=== PATIENT | male | born 1985 | race Caucasian/White ===

== ENCOUNTER 2017-05-11 11:03 | Inpatient (IN) | payer BC, OTHER ==
[~2017-05-11] VITALS: Ht 190.5 cm; Wt 89.8 kg
[2017-05-11 16:55] VITALS: BP 120/68
--- NOTE | 2017-05-11 16:55 | NUR ---
Pre-admission Notes: Client is seen in intake at this time. He is alert and oriented x 4. Verbally responsive. Speech is clear. Presents with mild anxiety but with good eye contact. Educated patient on the admission process. Able to verbalize good understanding. Patient states that he is here to safely detox from opiates. Reports using Oxycontin 450 mg PO x 3 years. Denies any seizure history. Reports having seasonal allergies caused by pollen extracts. NKDA. Wishes to be FULL CODE. Follows a regular diet at home. VS: BP 120/68, Pulse 86, Temp 98.1, RR 19, PL 0/10. O2 sat 94% RA. COWS 7, patient complains of anxiety, hot flashes, feeling jittery with restless legs, runny nose, and fine tremors. Patient reports past medical hx appendectomy 5 years ago. Denies any seizure history. Will continue with the admission process when patient is in the unit.
--- NOTE | 2017-05-11 17:20 | NUR ---
Admission Notes: Admitted a 31 year old male under the care of Dr. Sheldon Mcallister for admitting Dx of opiate withdrawal. Patient is alert and oriented x 4. Verbally responsive. Respirations even and unlabored. No SOB noted. Skin warm and moist to touch. Body search done. No contraband was found. Skin check done. No skin breakdown noted. Skin is clear and intact. Noted with multiple tattoos all over body area. Abdomen soft and non-distended with (+) BS in all 4 quadrants. No complains of N/V/D or abdominal cramping noted. LBM 05/08/2017. Bladder non-distended. No complains of dysuria noted. Denies seizure history. Reports NKDA, however he stated that he would have seasonal allergies due to pollen. He reports past medical hx of appendectomy, depression and anxiety. He denies having a PCP at this time. He reports having a family hx of substance abuse in the family, dad (ETOH abuse). He is currently unemployed and lives alone with his dog. He is currently unemployed and he states that the cause of his ongoing and frequent use have been due to difficulty coping with negative emotions. This is the patient's first time in detox. Substance Use: 1. Oxycodone - since 28 years old. Snorts 450 mg of Oxycodone daily x 2 years. Last use was on 05/11/2017 at 1000, 150mg. Dr. Mcallister in to see the patient while in intake and admission orders were entered. Will continue to monitor closely.
[2017-05-11 18:04] LABS: *AMPHETAMINE, URINE NEGATIVE (NEGATIVE); *BARBITURATE, URINE NEGATIVE (NEGATIVE); *CANNABINOID, URINE NEGATIVE (NEGATIVE); *COCCAINE, URINE NEGATIVE (NEGATIVE); *OPIATE, URINE POSITIVE (NEGATIVE); *PHENCYCLIDINE SCREEN,URINE NEGATIVE (NEGATIVE)
[2017-05-11] MEDS ORDERED: PARO25TA16 PO (18:06)
[2017-05-11 18:40] LABS: BASOPHILS % (AUTO) 0.6 % (0.0-2.0); EOSINOPHILS # (AUTO) 0.5 K/uL (0.0-0.7); EOSINOPHILS % (AUTO) 7.5 % (0.0-7.0); HEMATOCRIT 38.6 % (40-50); LYMPHOCYTES # (AUTO) 2.1 K/UL (0.8-4.8); LYMPHOCYTES % (AUTO) 30.1 % (20.5-51.5); MEAN CORPUSCULAR HEMOGLOBIN 30.6 UUG (27.0-31.0); MEAN CORPUSCULAR HGB CONC 34 g/dL (32.0-37.0); MEAN CORPUSCULAR VOLUME 90.6 FL (82.0-92.0); MONOCYTES # (AUTO) 0.4 K/UL (0.1-1.30); MONOCYTES % (AUTO) 6.3 % (0.0-11.0); NEUTROPHILS % (AUTO) 55.5 % (38.5-71.5); PLATELET COUNT (AUTO) 235 K/UL (150-450); RED BLOOD CELL COUNT(AUTO) 4.26 MIL/UL (4.7-6.1)
[2017-05-11 18:41] LABS: ETHANOL < 3 MG/DL (0-0)
[2017-05-11 18:45] LABS: ALANINE AMINOTRANSFERASE 29 U/L (16-63); ALKALINE PHOSPHATASE 86 U/L (50-136); ASPARTATE AMINOTRANSFERASE 14 U/L (15-37); BILIRUBIN,TOTAL 0.1 mg/dL (0.2-1.0); CARBON DIOXIDE 34 mmol/L (21-32); CHLORIDE 103 mmol/L (98-107); CREATININE 1.2 mg/dL (0.6-1.3); GLUCOSE 120 mg/dL (74-106); MAGNESIUM 1.9 mg/dL (1.8-2.4); POTASSIUM 4.9 mmol/L (3.5-5.1); TOTAL PROTEIN, SERUM 6.7 g/dL (6.4-8.2); UREA NITROGEN, BLOOD 18 mg/dL (7-18)
--- NOTE | 2017-05-11 18:56 | NUR ---
End of Shift Notes: Patient is a 31 year old male admitted for opiate dependence. Patient will be started on a 5-day Subutex taper tomorrow AM. VS monitored. No significant abnormalities noted. Withdrawal symptoms were closely monitored. COWS 7 upon admission, patient presented with hot, chills, sweats and runny nose. Compliant with care and treatment. Educated patient on the units policies and safety protocols. Will continue to monitor.
[2017-05-11 20:00] VITALS: BP 109/67
--- NOTE | 2017-05-11 20:00 | NUR ---
1999 Patient received awake, alert and standing outside of his room # [id number], talking with other patients. Patient assisted into his room for V/S and nurse assess. Gait is steady. Patient responds to nurse's greeting and introduction with a smile and " Oh, Hi you're my nurse?" Patient's color is pink and his skin is clean, warm, dry and intact. Patient is oriented to person, place, day, date, time and his personal situation. Patient states that he feels "okay right now", and he denies any pain or any other discomfort presently. Patient states that he has eaten his his Regular diet meal tray and he is taking various fluids ad darwin since he was admitted this afternoon, with no gastric issue so far. Vital signs are: 98-80-18 109/67, O2 Sat 98%, COWS 4 . Patient was admitted today, 05/11/17, for Oxycodone withdrawal and he will start on a 5-Day Subutex medication taper on 05/12/17 for withdrawal symptoms. Patient is friendly, cooperative, gives good eye contact and is verbally appropriate when interacting with patient, though he states that this is his first treatment admission and he is feeling a little anxious. Calm reassurances and positive encouragement given to patient, and then patient smiled brightly and states, " Oh, okay, well I think I'm going to go downstairs for a smoke break now". Patient voices no requests for anything at this time. Bed is locked and in lowest position, bed rails are up X 1 and call light on patient's bed.
--- NOTE | 2017-05-11 21:16 | NUR ---
PRN MEDICATIONS: Prn Vistaril 25 mg p.o. given per c/o anxiety, Prn Benadryl 50 mg p.o. given per request for sleep medication and Prn Robaxin 750 mg given per c/o generalized body muscle aches, -02/13.
--- NOTE | 2017-05-11 22:16 | NUR ---
REASSESSMENT PRN MEDICATIONS: Patient is downstairs on hospital patio for smoke break. Unable to reassess patient at this time.
[2017-05-12] VITALS: BP 96/56
--- NOTE | 2017-05-12 | NUR ---
V/S are: 98-66-14 96/56, O2 Sat 96%. Patient too sleepy to do COWS assessment at this time.
--- NOTE | 2017-05-12 03:11 | NUR ---
PRN MEDICATIONS: Prn Vistaril 25 mg p.o. given per c/o anxiety and Prn Catapres 0.1 mg p.o. per c/o increasing anxiety and agitation. Patient states, " I feel a little restless".
[2017-05-12 04:00] VITALS: BP 120/70
--- NOTE | 2017-05-12 04:00 | NUR ---
V/S are: 98.2-70-12 120/70, O2 Sat 98%, COWS 2.
--- NOTE | 2017-05-12 04:11 | NUR ---
REASSESSMENT PRN MEDICATIONS: Patient is resting comfortably with eyes closed and respirations quiet, even, unlabored ar12.
--- NOTE | 2017-05-12 06:30 | NUR ---
0630 Patient slept a total of 6 hours and he had 1 void and no stools. Total intake was 500 ml p.o. Prn medications given noted separately per floor protocol. V/SS afebrile, last COWS 2 at 0400. Patient is presently resting comfortably in stable condition with eyes closed and respirations quiet, unlabored at 12.
--- NOTE | 2017-05-12 08:00 | NUR ---
31 year old male, admitting Dx of opiate withdrawal. NKDA, but has seasonal allergies due to pollen. Past medical hx of appendectomy, depression and anxiety. Report received from night RN. Received PRN Benadryl, Vistaril and Robaxin at approximately 9 pm. Slept 6 hours. Approximately 3 am, PRN Vistaril and clonidine given. Last COW 2. 0800 patient rounds, patient sleeping, alert to verbal. Denies pain. Call buchanan in reach, bed in low position an locked, side rails up x 2. Will continue to monitor.
[2017-05-12 08:30] VITALS: BP 115/71
[2017-05-12 12:30] VITALS: BP 100/58
[2017-05-12 16:30] VITALS: BP 96/47
--- NOTE | 2017-05-12 19:35 | NUR ---
END OF SHIFT NOTE 31 year old male, admitting Dx of opiate withdrawal. NKDA, but has seasonal allergies due to pollen. Past medical hx of appendectomy, depression and anxiety. 1700 Subutex held due to BP 99/56. Dr. Mcallister notified. COWS 4 at 0800, 1200 and 1600. Intake 750 ml, RN encouraged increased po fluids. Good appetite, ate 75 percent at breakfast, and 100 percent at lunch and dinner. Void x 1, stool x 1. Report given to night RN. Call buchanan in reach, bed in low position an locked, side rails up x 2.
[2017-05-12 20:00] VITALS: BP 116/70
--- NOTE | 2017-05-12 20:00 | NUR ---
1999 Patient received lying in position of comfort, resting quietly. Aroused easily for vital signs and nurse assess. Vital signs are: 98.4-63-16 116/70, O2 Sat 97%, COWS 4 . Patient is oriented to person, place, day, date and his personal situation. Easily reoriented to time. Patient states that he has been eating and taking encouraged fluids ad darwin with no gastric issues. Patient states further that he has attended a [employer] group today, but he has been resting in his room a lot also. Patient's color is pink and his skin is clean, warm, dry and intact. Patient denies feeling any pain or other discomfort presently and he voices no requests for anything at this time. Patient was admitted on 05/11/17 for Oxycodone withdrawal and he has been started today on a 5-Day Subutex medication taper, which he is apparently tolerating well thus far. Patient is friendly, cooperative and verbally appropriate when interacting with nurse and his overall mood/affect is bright, though slightly anxious. Bed is locked and in lowest position, bed rails are up X 2 and call light within patient's easy reach.
--- NOTE | 2017-05-12 21:48 | NUR ---
PRN MEDICATIONS: Prn Robaxin 750 mg p.o. given per request for c/o generalized body muscle aches/pains, 7/10 pain scale, and Prn Vistaril 25 mg p.o. given per c/o anxiety.
--- NOTE | 2017-05-12 22:48 | NUR ---
REASSESSMENT PRN MEDICATIONS: Patient is downstairs on hospital patio for cigarette smoke. Unable to reassess patient at this time.
--- NOTE | 2017-05-12 23:41 | NUR ---
PRN MEDICATION: Prn Benadryl 50 mg p.o. given per request for sleep medication.
[2017-05-13] VITALS: BP 113/69
--- NOTE | 2017-05-13 | NUR ---
V/S are: 98.1-65-14 113/69, O2 Sat 97%. Patient too sleepy to do COWS assess.
--- NOTE | 2017-05-13 00:41 | NUR ---
REASSESSMENT PRN MEDICATION: Patient is sleeping soundly with eyes closed and respirations quiet, even, unlabored at 12.
--- NOTE | 2017-05-13 00:55 | NUR ---
PRN Clonidine Pt c/o anxiety and requested for PRN Clonidine. Medication given and tolerated well. Will reassess within 1 HR. Will continue to monitor.
--- NOTE | 2017-05-13 01:50 | NUR ---
PRN Clonidine Reassessment Medication effective. Pt is resting well in bed. No s/s of ASE/distress noted at this time. Respirations even and unlabored. Will continue to monitor.
--- NOTE | 2017-05-13 04:00 | NUR ---
Patient refused to be awakened for V/S, COWS assess to be done at this time.
[2017-05-13 06:07] LABS: HEPATITIS B SURFACE AG Negative (Negative)
--- NOTE | 2017-05-13 06:30 | NUR ---
0630 Patient slept a total of 7 hours and he had 1 void (500 ml ) and no stools. Total intake was 1,547 ml p.o. Prn medications given noted separately per floor protocol. V/SS afebrile, last COWS 4 at 0000. Patient is presently resting comfortably in stable condition with eyes closed and respirations quiet, even, unlabored at 12.
--- NOTE | 2017-05-13 07:30 | NUR ---
Start of shift note; Received report from night nurse. Patient is a 31 year old male admitted on 05/11/17 for Opiate dependence.. Patient was placed on a 5 day Subutex taper, no adverse effects noted. Patient reported history of appendectomy, depression, anxiety. Patient is on fall precaution. Bed in lwoest position, call light within reach. Will continue to monitor patient.
[2017-05-13 08:00] VITALS: BP 104/64
[2017-05-13 12:00] VITALS: BP 107/65
--- NOTE | 2017-05-13 12:06 | NUR ---
THerapist encouraged client to attend group today. Client agreed to attend group.
[2017-05-13 16:00] VITALS: BP 125/61
--- NOTE | 2017-05-13 19:26 | NUR ---
End of shift note; Patient is AOX4. Patient is a 31 year old male admitted on 05/11/17 for Opiate dependence.. Patient was placed on a 5 day Subutex taper, no adverse effects noted. Patient reported history of appendectomy, depression, anxiety. Patient is on fall precaution. Bed in lowest position, call light within reach. Patient remained compliant with treatment plan and medication regime. Medications were effective in reducing withdrawal symptoms. Met all needs.
--- NOTE | 2017-05-13 19:30 | NUR ---
START OF SHIFT Pt is a 31 y/o male admitted on 05/11/17 for opiate dependence. Pt was dependent oxycodone 450 mg for 2 years. Pt is full code, regular diet, allergic to pollen extract and on fall precaution. No reported seizure hx. This is pts first time in detox. Pt reports PMH of depression, anxiety, and appendectomy. Pt started on a 5 day Subutex taper on 05/12/17. Upon assessment pt presents with chills, increased HR, mild body aches, stomach cramps, tremors and anxiety. Respirations 18, even and unlabored. Denies N/V/D. Denies chest pain or SOB. Medications due. Safety measures in place. Call light within reach. Will continue to monitor.
[2017-05-13 20:00] VITALS: BP 133/80
--- NOTE | 2017-05-13 21:52 | NUR ---
PRN VISTARIL AND BENADRYL ADMINISTRATION Pt reports and appears anxious. Pt also requests sleep aid. Respirations 16, even and unlabored. Safety measures in place. Call light within reach. Will continue to monitor.
--- NOTE | 2017-05-13 22:52 | NUR ---
PRN VISTARIL AND BENADRYL REASSESSMENT Pt reports improvement in anxiety, but is still awake. Respirations 16, even and unlabored. Safety measures in place. Call light within reach. Will continue to monitor.
[2017-05-14] VITALS: BP 117/68
--- NOTE | 2017-05-14 04:00 | NUR ---
VITALS REFUSED AND COWS DEFERRED Pt is laying in bed with eyes closed, COWS deferred, to be assessed when pt is awake per orders. Pt refused vitals. Respirations 16, even and unlabored. Safety measures in place. Call light within reach. Will continue to monitor.
--- NOTE | 2017-05-14 08:00 | NUR ---
START OF SHIFT NOTE 31 year old male admitted on 05/11/17 for Oxycodone substance detox. ON 5 day Subutex taper. Fall precautions. Allergy to pollen. Full code. Regular diet. Fall precautions. No history of seizure. History of depression. Received report from night RN. Pt received PRN Benadryl and Vistaril. Last COWS 5. Slept 5.5 hours. On 0800 patient rounds Pt sleeping but awakened when room door opened. Pt alert and oriented. Bed in low position and locked, side rails up x 2, call buchanan within reach. Will continue to monitor.
[2017-05-14 08:50] VITALS: BP 101/67
[2017-05-14 12:00] VITALS: BP 122/56
--- NOTE | 2017-05-14 15:26 | NUR ---
PRN MEDICATION ADMINISTRATION Anxiety 03/16 Given Clonidine prn.
--- NOTE | 2017-05-14 16:36 | NUR ---
PRN MEDICATION REASSESSMENT. Anxiety did not decrease with Clonidine. Given Vistaril PRN
[2017-05-14 17:00] VITALS: BP 136/76
--- NOTE | 2017-05-14 17:36 | NUR ---
PRN MEDICATION REASSESSMENT Anxiety decreased to 4/10 after administration of vistaril.
--- NOTE | 2017-05-14 19:30 | NUR ---
START OF SHIFT Pt is a 37 y/o male admitted on 05/12/17 for ETOH dependence. Pt was dependent on hard liquors 1500 ml daily for 3 years. Pt is full code, regular diet, allergic to amoxicillin and clavulanic acid, and on fall and seizure precautions. Pt has hx of seizure as a child r/t pseudotumor cerebri. Pt reports PMH of HTN and is deaf in R ear. Pt is on a 5 day Ativan taper started on 05/13/17. Last CIWA 6 at 1600. PRN Clonidine administered during day shift. Upon assessment pt presents with slight tremors, anxiety, increased HR, sweats, restlessness, flushed skin. Pt complains of pain in R ear (chronic), low back pain that radiates down right leg. 1:1 sitter with pt at bedside for safety precaution. Respirations 18, even and unlabored. Denies N/V/D. Denies chest pain or SOB. Medications due. Safety measures in place. Call light within reach. Will continue to monitor. Addendum: 05/14/17 at 2230 by NELY CHAVARRIA RN WRONG PATIENT START OF SHIFT CORRECT START OF SHIFT: Pt is a 31 y/o male admitted on 05/11/17 for opiate dependence. Pt was dependent oxycodone 450 mg for 2 years. Pt is full code, regular diet, allergic to pollen extract and on fall precaution. No reported seizure hx. This is pts first time in detox. Pt reports PMH of depression, anxiety, and appendectomy. Pt started on a 5 day Subutex taper on 10/06/17, tolerating well. Upon assessment pt laying in bed watching TV and presents with moderate anxiety, flushed skin, and sweats. Respirations 16, even and unlabored. Denies N/V/D. Denies chest pain or SOB. Medications due. Safety measures in place. Call light within reach. Will continue to monitor.
--- NOTE | 2017-05-14 19:37 | NUR ---
END OF SHIFT NOTE 31 year old male admitted on 05/11/17 for Oxycodone substance detox. ON 5 day Subutex taper. Fall precautions. Allergy to pollen. Full code. Regular diet. Fall precautions. No history of seizure. History of depression. Given clonidine for anxiety at 1526 without reduction in anxiety. 1636 given Vistaril with decrease in anxiety. Last COWS 6. Report given to night RN. Bed in low position and locked, side rails up x 2, call buchanan within reach.
[2017-05-14 20:00] VITALS: BP 114/68
--- NOTE | 2017-05-14 21:43 | NUR ---
PRN CLONIDINE 0.1 MG ADMINISTRATION Pt presents with moderate anxiety, irritability, and mild sweats. Clonidine administered for management of S/S of withdrawal. BP 119/73. Will monitor BP and S/S of withdrawal. Safety measures in place. Call light within reach.
--- NOTE | 2017-05-14 22:43 | NUR ---
PRN CLONIDINE REASSESSMENT Pt reports reduction in anxiety. Pt appears less anxious, irritable, and sweaty. Safety measures in place. Call light within reach. Will continue to monitor.
--- NOTE | 2017-05-14 23:44 | NUR ---
PRN VISTARIL AND TRAZODONE ADMINISTRATION Pt reports persistent mild to moderate anxiety and requests sleep aid. Safety measures in place. Call light within reach. Will continue to monitor.
[2017-05-15] VITALS: BP 102/66
--- NOTE | 2017-05-15 00:44 | NUR ---
PRN VISTARIL AND TRAZODONE REASSESSMENT Pt is laying in bed with eyes closed. Respirations 16, even and unlabored. Safety measures in place. Call light within reach. Will continue to monitor.
--- NOTE | 2017-05-15 04:00 | NUR ---
VITALS REFUSED AND COW DEFERRED Pt is laying in bed with eyes closed, vitals refused, COW deferred, to be assessed when fully awake per orders. Respirations 16, even and unlabored. Safety measures in place. Call light within reach. Will continue to monitor.
--- NOTE | 2017-05-15 07:08 | NUR ---
END OF SHIFT Pt is a 31 y/o male admitted on 05/11/17 for opiate dependence. Pt was dependent oxycodone 450 mg for 2 years. Pt is full code, regular diet, allergic to pollen extract and on fall precaution. No reported seizure hx. This is pts first time in detox. Pt reports PMH of depression, anxiety, and appendectomy. Pt started on a 5 day Subutex taper on 05/12/17, tolerating well. Pt presented with moderate anxiety, flushed skin, and sweats. Scheduled medications and PRN Clonidine, Vistaril, and Trazodone administered, effective in S/S of withdrawal AEB COW went from 3 to 2 during shift and pt verbalized improvement in symptoms. Slept 8 hours. Intake 1006 ml, void x 3, stool x 0. Safety measures in place. Call light within reach. Pts needs have been met. Endorsed to day shift nurse.
--- NOTE | 2017-05-15 07:49 | NUR ---
Start of shift note; Received report from night nurse. Patient is a 31 year old male admitted on 05/11/17 for Opiate dependence.. Patient was placed on a 5 day Subutex taper, no adverse effects noted. Patient reported history of appendectomy, depression, anxiety. Patient is on fall precaution. Bed in lowest position, call light within reach. Patient received PRN Clonidine, Vistaril and Trazodone last night all noted to be effective per night nurse. Patient's last COWS is 2, slept for 8 hours. Will continue to monitor patient.
[2017-05-15 08:00] VITALS: BP 98/65
[2017-05-15 12:00] VITALS: BP 110/62
--- NOTE | 2017-05-15 15:48 | NUR ---
PRN medication; Patient appears agitated and anxious. Non-pharmacological relaxation techniques ineffective. PRN Clonidine 0.1mg PO given for agitation. Will continue to monitor patient.
--- NOTE | 2017-05-15 15:48 | NUR ---
Re-assessment; Patient appears calm and comfortable. PRN Clonidine noted to be effective.
[2017-05-15 16:00] VITALS: BP 110/64
--- NOTE | 2017-05-15 18:19 | NUR ---
End of shift note; Patient is AOX4. Patient is a 31 year old male admitted on 05/11/17 for Opiate dependence.. Patient was placed on a 5 day Subutex taper, no adverse effects noted. Patient reported history of appendectomy, depression, anxiety. Patient is on fall precaution. Bed in lowest position, call light within reach. Patient remained compliant with treatment plan and medication regime. Medications were effective in reducing withdrawal symptoms. Patient's last COWS score is 4 at 1600. Met all needs.
--- NOTE | 2017-05-15 18:26 | NUR ---
PRN medications; Patient appears very anxious and agitated, pacing back and forth in the room. Patient is also complaining of pain/headache rated 6/10 on pain scale. PRN Vistaril 25mg PO given for anxiety and PRN Motrin 600mg PO given for pain. Will continue to monitor patient for effectiveness of medication.
--- NOTE | 2017-05-15 19:16 | NUR ---
Re-assessment; Patient appears calm and comfortable, currently denies pain/headache. PRN Motrin and PRN Vistaril were effective.
--- NOTE | 2017-05-15 19:30 | NUR ---
START OF SHIFT Pt is a 31 y/o male admitted on 05/11/17 for opiate dependence. Pt was dependent oxycodone 450 mg for 2 years. Pt is full code, regular diet, allergic to pollen extract and on fall precaution. No reported seizure hx. Pt reports PMH of depression, anxiety, and appendectomy. Pt started on a 5 day Subutex taper on 05/12/17, tolerating well. Upon assessment pt presents with moderate anxiety, sweats and restlessness. Respirations 16, even and unlabored. Denies N/V/D. Denies chest pain or SOB. Medications due. Safety measures in place. Call light within reach. Will continue to monitor.
[2017-05-15 20:00] VITALS: BP_SYST 112; BP_SYST 128; BP_DIAS 59; BP_DIAS 74
--- NOTE | 2017-05-15 21:58 | NUR ---
PRN CLONIDINE ADMINISTRATION Pt reports worsening anxiety, restlessness, tremors, and sweats. BP 119/64, HR 86. Respirations 18, even and unlabored. Safety measures in place. Call light within reach. Will continue to monitor.
--- NOTE | 2017-05-15 22:58 | NUR ---
PRN CLONIDINE REASSESSMENT Pt is awake, laying in bed. Patient appears anxious and mildly fidgety. Pt reports "only very mild improvement" in symptoms. Advised pt to take slow, deep breaths. Will continue to monitor. Safety measures in place. Call light within reach.
[2017-05-16] VITALS: BP 113/67
--- NOTE | 2017-05-16 00:10 | NUR ---
PRN BENADRYL AND ROBAXIN ADMINISTRATION Pt requests sleep aid. Robaxin administered for muscle spasms. Pt is laying in bed watching tv. Safety measures in place. Call light within reach. Will continue to monitor.
--- NOTE | 2017-05-16 01:10 | NUR ---
ELENI MELTON AND KAVITHA REASSESSMENT Pt reports improvement in muscle spasms, but is still awake, laying in with watching TV. Will continue to monitor. Safety measures in place. Call light within reach.
--- NOTE | 2017-05-16 01:18 | NUR ---
ELENI ROBERTSON Pt reports persistent anxiety. Pt appears mildly fidgety. Safety measures in place. Call light within reach. Will continue to monitor. Addendum: 05/16/17 at 0236 by NELY CHAVARRIA RN ADMINISTRATION
--- NOTE | 2017-05-16 02:18 | NUR ---
PRN VISTARIL ADMINISTRATION Pt reports improvement in anxiety, does not appear fidgety. Pt laying in bed watching tv. Safety measures in place. Call light within reach. Will continue to monitor. Addendum: 05/16/17 at 0236 by NELY CHAVARRIA RN REASSESSMENT, NOT ADMINISTRATION OF VISTARIL
--- NOTE | 2017-05-16 04:00 | NUR ---
VITALS REFUSED AND COW DEFERRED Pt refused vitals. Pt is laying in bed with eyes closed, COW to be assessed when pt is fully awake per orders. Respirations 18, even and unlabored. Safety measures in place. Call light within reach. Will continue to monitor.
--- NOTE | 2017-05-16 07:17 | NUR ---
END OF SHIFT Pt is a 31 y/o male admitted on 05/11/17 for opiate dependence. Pt was dependent oxycodone 450 mg for 2 years. Pt is full code, regular diet, allergic to pollen extract and on fall precaution. No reported seizure hx. Pt reports PMH of depression, anxiety, and appendectomy. Pt started on a 5 day Subutex taper on 05/12/17, tolerating well. Pt presented with moderate anxiety, sweats, and restlessness. Scheduled medications and PRN Benadryl, Vistaril, Robaxin, and Clonidine administered, effective in S/S of withdrawal as verbalized by pt and COW 4 lowered to 2. Slept 2.5 hours. Intake 855 ml, void x 2, stool x 0. Safety measures in place Call light within reach. Pts needs have been met. Endorsed to day shift nurse.
--- NOTE | 2017-05-16 07:30 | NUR ---
Start of shift note; Received report from night nurse. Patient is a 31 year old male admitted on 05/11/17 for Opiate dependence.. Patient was placed on a 5 day Subutex taper, no adverse effects noted. Patient reported history of appendectomy, depression, anxiety. Patient is on fall precaution. Bed in lowest position, call light within reach. Patient's last COWS is 2, slept for 3 hours. Will continue to monitor patient.
[2017-05-16 08:00] VITALS: BP 108/64
[2017-05-16 12:00] VITALS: BP 95/64
--- NOTE | 2017-05-16 15:35 | NUR ---
PRN medication; Patient is complaining of sore throat and headache/pain rated 6/10 on pain scale. PRN Motrin given for pain and Cepacol given for sore throat as per MD order.Will continue to monitor patient.
[2017-05-16 16:00] VITALS: BP 111/63
--- NOTE | 2017-05-16 16:35 | NUR ---
Re-assessment; Re-assessed patient. Patient is still complaining of headache/pain. PRN medication is ineffective.
--- NOTE | 2017-05-16 16:50 | NUR ---
PRN medication; Patient is complaining of headache/pain rated 6/10 on pain scale, PRN Tylenol 650mg PO given for pain and Vistaril 25mg PO given for anxiety. Will continue to monitor patient for effectiveness of medication.
--- NOTE | 2017-05-16 17:50 | NUR ---
Re-assessment; Patient appears calm and comfortable, denies pain/headache at this time. PRN medications were effective.
--- NOTE | 2017-05-16 18:09 | NUR ---
End of shift note; Patient is AOX4. Patient is a 31 year old male admitted on 05/11/17 for Opiate dependence.. Patient was placed on a 5 day Subutex taper, no adverse effects noted. Patient reported history of appendectomy, depression, anxiety. Patient is on fall precaution. Bed in lowest position, call light within reach. Patient remained compliant with treatment plan and medication regime. Medications were effective in reducing withdrawal symptoms. Patient's last COWS score is 3 at 1600. Met all needs.
[2017-05-16 20:00] VITALS: BP 117/70
--- NOTE | 2017-05-16 20:00 | NUR ---
START OF SHIFT Received report from day shift nurse. Pt attended a group meeting and returned to his room after. He is a 31 yo male admitted to [facility] on 05/11 for Opioid dependence. He is A&O x4 and ambulatory. Allergic to pollen extracts, full code status, and on a regular diet. He has a PMH of appendectomy, depression, and anxiety. On admission he reported using oxycodone 450mg per day. Pt started a 5 day subutex taper on 05/12. He reports a high level of anxiety. Provided support and encouraged relaxation. Taper due tonight. Fall and seizure precautions in place. Bed is down with call light in reach.
--- NOTE | 2017-05-16 21:02 | NUR ---
PRN Clonidine and Lozenge Pt reports high anxiety level and appears restless. Encouraged relaxation PRN Clonidine administered. He reports mild sore throat. PRN Lozenge administered.
--- NOTE | 2017-05-16 22:02 | NUR ---
PRN Clonidine reassessment PRN Clonidine effective. Pt reports feeling more relaxed. He no longer appears restless.
[2017-05-16 23:50] VITALS: BP 113/63
--- NOTE | 2017-05-16 23:56 | NUR ---
PRN Vistaril and Benadryl Pt reports anxiety level has increased and he is unable to sleep. PRN Vistaril and Benadryl administered.
[2017-05-17] VITALS: BP 113/63
--- NOTE | 2017-05-17 00:56 | NUR ---
PRN Vistaril and Benadryl reassessment PRN Vistaril and Benadryl effective. Pt is lying in bed resting with eyes closed. Respirations even and unlabored. Safety measures in place.
--- NOTE | 2017-05-17 04:00 | NUR ---
0400 Vitals refused/COWS deferred Pt refused to be woken for 0400 vitals. He is lying in bed resting with eyes closed. Respirations even and unlabored. COWS ordered Q4HWA. Safety measures in place.
--- NOTE | 2017-05-17 06:58 | NUR ---
END OF SHIFT Report provided to day shift nurse. Pt. is lying in bed resting. He is a 31 yo male admitted to [facility] on 05/11 for Opioid dependence. He is A&O x4 and ambulatory. Allergic to pollen extracts, full code status, and on a regular diet. He has a PMH of appendectomy, depression, and anxiety. On admission he reported using oxycodone 450mg per day. 5 day subutex taper was started on 05/12. He is compliant with treatment. PRN Clonidine, Vistaril, Benadryl, and Lozenge administered. Last COWS 4. He drank 1400mL and slept for 6 hours. Fall and seizure precautions in place. Bed is down with call light in reach.
--- NOTE | 2017-05-17 07:24 | NUR ---
Start of shift note; Received report from night nurse. Patient is a 31 year old male admitted on 05/11/17 for Opiate dependence.. Patient was placed on a 5 day Subutex taper, no adverse effects noted. Patient reported history of appendectomy, depression, anxiety. Patient is on fall precaution. Bed in lowest position, call light within reach. Patient's last COWS is 2, slept for 7 hours. Will continue to monitor patient.
[2017-05-17 08:00] VITALS: BP 96/69
[2017-05-17 12:00] VITALS: BP 99/62
[2017-05-17] MEDS ORDERED: DICY20TA28 PO (13:23)
[2017-05-17] MEDS ORDERED: IBUP-1955 PO (13:23)
[2017-05-17] MEDS ORDERED: HYDR-3895 PO (13:23)
[2017-05-17] MEDS ORDERED: METH-406 PO (13:23)
[2017-05-17] MEDS ORDERED: DIPH50CA37 PO (13:23)
[2017-05-17] MEDS ORDERED: TRAZ-144 PO (13:23)
[2017-05-17 16:00] VITALS: BP 115/76
--- NOTE | 2017-05-17 18:05 | NUR ---
End of shift note; Patient is AOX4. Patient is a 31 year old male admitted on 05/11/17 for Opiate dependence.. Patient was placed on a 5 day Subutex taper, no adverse effects noted. Patient reported history of appendectomy, depression, anxiety. Patient is on fall precaution. Bed in lowest position, call light within reach. Patient remained compliant with treatment plan and medication regime. Medications were effective in reducing withdrawal symptoms. Patient's last COWS score is 3 at 1600. Patient is medically cleared for discharge tomorrow. Met all needs.
--- NOTE | 2017-05-17 18:06 | NUR ---
Start of Care Pt is a 31 year old male admitted for Oxycodone dependence, placed on 5 day Subutex taper, completed. Pt reported using Oxycodone 450mg/daily for 2 years. PMH: Appendectomy, depression and anxiety. Pt reports allergies to pollen extract, regular diet, fall precautions and full code. Upon assessment, pt reports feeling anxious, respirations even/unlabored, denies SOB/chest pain, denies n/v/d, bowel sounds active x4, abdomen soft. Pt is scheduled for discharged tomorrow. Safety measures in place, call light within reach, side rails up x2, bed locked and in low position. Will continue to monitor.
--- NOTE | 2017-05-17 18:58 | NUR ---
PRN Administration Pt reports feeling anxious, requests relief. Vistaril 25mg PRN administered. Safety measures in place. Will continue to monitor.
--- NOTE | 2017-05-17 19:58 | NUR ---
PRN Reassessment Pt reports feeling better. Pt states Vistaril was effective. Safety measures in place. Will continue to monitor.
[2017-05-17 20:00] VITALS: BP 128/81
--- NOTE | 2017-05-17 21:43 | NUR ---
PRN Administration Pt reports feeling anxious, states "I am feeling restless". Clonidine 0.1mg PRN administered. Benadryl 50mg PRN administered for sleep and 1 Lozenge administered for reports of sore throat. Safety measures in place. Will continue to monitor.
--- NOTE | 2017-05-17 22:43 | NUR ---
PRN Reassessment Upon reassessment, pt states, "feeling at ease". Clonidine effective. Pt denies sore throat. Pt states he is getting ready to sleep. Needs met, safety measures in place. Will continue to monitor.
[2017-05-18] VITALS: BP 119/65
--- NOTE | 2017-05-18 | NUR ---
Vital Signs/COWS deferred BP 119/65, pulse 85, resp 16, Spo2 99% room air, temp 97.9, no reports of pain COWS deferred due to pt sleeping, to assess while pt is awake as ordered. Safety measures in place. Will continue to monitor.
--- NOTE | 2017-05-18 04:00 | NUR ---
Pt refused to be woken up for 0400 VS, COWS deferred d/t pt sleeping, to assess while pt is awake Pt is sleeping, respirations even/unlabored. Safety measures in place. Will continue to monitor.
--- NOTE | 2017-05-18 07:00 | NUR ---
End of Shift Pt is a 31 year old male admitted for Oxycodone dependence, placed on 5 day Subutex taper, completed. Pt reported using Oxycodone 450mg/daily for 2 years. PMH: Appendectomy, depression and anxiety. Pt reports allergies to pollen extract, regular diet, fall precautions and full code. During, pt reported feeling anxious to discharge scheduled for today. Vistaril 25mg PRN, Clonidine 0.1mg PRN, Lozenge administered - medications effective. Latest COWS 2, Pt slept for 5 hours, intake of 1680 ml PO, voids x2 and stool x1. Safety measures in place, call light within reach, side rails up x2, bed locked and in low position. Endorsed to day shift nurse.
--- NOTE | 2017-05-18 07:01 | NUR ---
Start of Shift Notes: Received patient in his room. Alert and verbally responsive. Oriented x 4. Able to make her needs known. Respirations even and unlabored. No SOB noted. Skin warm and dry to touch. Abdomen soft and non-distended. BS (+) in all 4 quadrants. No complains of N/V/D or constipation noted. Bladder non-distended. Voids independently. Ambulatory ad darwin with steady gait. Patient is a 31 year old male admitted for opiate dependence who was placed on a 5-day Subutex taper and completed. Has past medical hx of depression, anxiety, and appendectomy. Allergies to pollen. FULL CODE. Regular diet. On fall and seizure precautions. Educated patient on the discharge process. Patient verbalized good understanding. Will continue to monitor.
[2017-05-18 08:00] VITALS: BP 99/60
--- NOTE | 2017-05-18 10:38 | NUR ---
Discharged: Discharge instructions education provided to the patient. Patient verbalized good understanding of all teachings. Patient signed all paperwork and placed inside duffel bag. Returned all clothings, medications and valuables. COWS 0. Left the unit at this time with the escort of [employer] and picked up to be transported to [facility]
== END 2017-05-18 10:35 | disposition other institution (70) | DRG 895 ==
LOC: SRC 16:17
PROVIDERS: ADMIT Internal Medicine; ATTEND Internal Medicine
PROC: HZ2ZZZZ Detoxification Services for Substance Abuse Treatment (ICD-10-PCS; principal; 2017-05-11)
PROC: HZ31ZZZ Individual Counseling for Substance Abuse Treatment, Behavioral (ICD-10-PCS; 2017-05-13)
PROC: HZ41ZZZ Group Counseling for Substance Abuse Treatment, Behavioral (ICD-10-PCS; 2017-05-13)
DX: F11.23 Opioid dependence with withdrawal (principal); E87.3 Alkalosis; F33.1 Major depressive disorder, recurrent, moderate; F41.9 Anxiety disorder, unspecified; Z81.1 Family history of alcohol abuse and dependence; Z79.899 Other long term (current) drug therapy; F17.200 Nicotine dependence, unspecified, uncomplicated; D64.9 Anemia, unspecified; E86.0 Dehydration; R73.9 Hyperglycemia, unspecified
CPT/HCPCS: 36415; 70030-TC; 80307; 80361; 83735; 85025; 86580; 86592; 86705; 86803; 87340; 87806; 90732; A4663; G0480; Q0163